=== PATIENT | male | born 2000 | race Hispanic/Latino ===

== ENCOUNTER 2024-08-14 12:14 | Emergency (ER) | payer BC, SELFPAY ==
[2024-08-14 12:17] VITALS: BP 133/78; PULSE 72; RESP 18; TEMP 36.2; O2SAT 98; BMI 27.0
[2024-08-14 13:25] LABS: Hematocrit 46.3 % (40-54); Hemoglobin 15.8 g/dL (13.0-16.5); Immature Granulocytes Count 0.020 X10^3/uL (0.0-0.0); Mean Corp Hgb Conc 34.1 g/dL (32-36); Mean Corpuscular Volume 86.7 fL (80-94); Mean Platelet Vol. 8.7 fl (6.2-12.0); NRBC Flagged by Analyzer 0 % (0-5); Platelet Count 264 K/mm3 (150-450); RBC Distribution Width CV 13.0 % (11.6-14.6); RBC Distribution Width SD 40.5 fl (35.1-43.9); Red Blood Count 5.34 M/mm3 (4.6-6.2); White Blood Count 9.6 K/mm3 (4.4-11.0)
[2024-08-14] MEDS: 0.9% Normal Saline (1000mL) 1,000 ML 999 ML IV (13:48)
[2024-08-14 14:00] VITALS: BP 139/71; PULSE 82; RESP 13; O2SAT 100
[2024-08-14 14:04] LABS: Anion Gap 11 (5-15); BUN 13 mg/dL (4-19); BUN/Creat Ratio 12.7 RATIO (10-20); Calcium,Total 8.9 mg/dL (7.6-11.0); Carbon Dioxide 24.0 mmol/L (21.0-32.0); Chloride 104 mmol/L (98-108); Estimated Creatinine Clearance 120.53 ml/min (50-250); Glucose 94 mg/dL (70-99); Potassium 4.6 mmol/L (3.3-5.1)
[2024-08-14 14:30] VITALS: BP 129/76; PULSE 76; RESP 17; O2SAT 99
[2024-08-14 14:45] VITALS: BP 124/85; PULSE 78; RESP 18; O2SAT 100
[2024-08-14 16:16] LABS: AST(SGOT) 29 U/L (<=37); Alanine Aminotransfer ALT/SGPT 49 U/L (<=46); Albumin, Serum 4.7 g/dL (3.5-5.0); Alkaline Phosphatase 87 U/L (40-129); Bilirubin, Direct 0.18 mg/dL (0.00-0.30); Globulin 3.5 g/dL (2.2-4.2)
[2024-08-14 16:35] VITALS: BP 128/67; PULSE 81; RESP 16; TEMP 36.7; O2SAT 100
== END 2024-08-14 16:37 | disposition home or self-care (01) ==
PROVIDERS: Emergency Provider Emergency Medicine; Visit Provider Emergency Medicine
DX: R11.2 Nausea with vomiting, unspecified (principal); R42 Dizziness and giddiness; F17.210 Nicotine dependence, cigarettes, uncomplicated
CPT/HCPCS: 71046; 80048; 80076; 85025; 93005; 96361; 96374; 96376; 99284; A4216; J2405